=== PATIENT | female | born 2000 | race Two or more races ===

== ENCOUNTER 2019-02-17 22:51 | Emergency (ER) | payer SELFPAY ==
[~2019-02-17] VITALS: Ht 160 cm; Wt 54.4 kg
[2019-02-17 22:52] VITALS: BP 102/52
--- NOTE | 2019-02-17 23:51 | PHYS DOC ---
Past Medical History Past Medical History: No Pertinent History Past Surgical History: No Surgical History Alcohol Use: None Drug Use: None Adult General Chief Complaint Chief Complaint: FOREIGN BODY/EYES HPI HPI Patient is a 18 year old female who presents stating that she thinks she lost her contact in her right eye. She states she's change her contacts about 10:00 PM and couldn't find her right contact. She thinks Monday loss in her eye. She states she's felt a little foreign body sensation in her eye. Review of Systems Review of Systems Constitutional: Denies fever or chills [] Eyes: Reports foreign body sensation in R eye. HENT: Denies nasal congestion or sore throat [] Respiratory: Denies cough or shortness of breath [] Cardiovascular: No additional information not addressed in HPI [] GI: Denies abdominal pain, nausea, vomiting, bloody stools or diarrhea [] : Denies dysuria or hematuria [] Musculoskeletal: Denies back pain or joint pain [] Integument: Denies rash or skin lesions [] Neurologic: Denies headache, focal weakness or sensory changes [] Complete systems were reviewed and found to be within normal limits, except as documented in this note. Allergies Allergies Allergies Coded Allergies Type Severity Reaction Last Updated Verified No Known Drug Allergies 02/17/19 No Physical Exam Physical Exam Constitutional: Well developed, well nourished, no acute distress, non-toxic appearance. [] HENT: Normocephalic, atraumatic, bilateral external ears normal, oropharynx moist, no oral exudates, nose normal. [] Eyes: PERRLA, EOMI, conjunctiva normal, no discharge. Performed examination of R eye, no contact or foreign body noted in eye. Skin: Warm, dry, no erythema, no rash. [] Neurologic: Alert and oriented X 3, normal motor function, normal sensory function, no focal deficits noted. [] Psychologic: Affect normal, judgement normal, mood normal. [] Current Patient Data Vital Signs Vital Signs Date Time Temp Pulse Resp B/P (MAP) Pulse Ox O2 Delivery O2 Flow Rate FiO2 02/17/19 22:52 98.8 76 17 102/52 (69) 99 98.8 EKG EKG [] Radiology/Procedures Radiology/Procedures [] Course & Med Decision Making Course & Med Decision Making Pertinent Labs and Imaging studies reviewed. (See chart for details) Patient was concerned that she lost her R contact in her eye. Contact is not noted in eye. Will d/c home. Dragon Disclaimer Dragon Disclaimer This electronic medical record was generated, in whole or in part, using a voice recognition dictation system. Departure Departure Impression: Primary Impression: Sensation of foreign body in eye Disposition: HOME, SELF-CARE Condition: STABLE Referrals: NO PCP (PCP) Additional Instructions: Thank you for visiting [facility]. We appreciate you trusting us with your care. If any additional problems come up don't hesitate to return to visit us. Please follow up with your primary care provider so they can plan additional care if needed and know about the problem that you had. If symptoms worsen come back to the Emergency Department. Any concerning symptoms that start such as chest pain, shortness of air, weakness or numbness on one side of the body, running high fevers or any other concerning symptoms return to the ER. If he continued to have the foreign body sensation or eye please follow up with an eye doctor. SUDHA GARCIA APRN Feb 17, 2019 23:51
== END 2019-02-18 00:04 | disposition home or self-care (01) ==
LOC: ER 22:51
DX: H57.89 Other specified disorders of eye and adnexa (principal)
CPT/HCPCS: 99281